=== PATIENT | female | born 1995 | race Caucasian/White ===

== ENCOUNTER → 2023-03-06 | Outpatient (CLI) | payer OTHER | END | disposition home or self-care (01) | LOC: NST 10:25 | PROVIDERS: ATTEND Obstetrics & Gynecology Maternal & Fetal Medicine | DX: Z34.83 Encounter for supervision of other normal pregnancy, third trimester (principal) ==

== ENCOUNTER 2023-03-07 10:45 | Inpatient (IN) | payer OTHER ==
[~2023-03-07] VITALS: Ht 157.5 cm; Wt 66.7 kg
[2023-03-07] MEDS ORDERED: PRENATAL + DHA1 EACH PO (12:21)
[2023-03-07] MEDS ORDERED: PEPCID AC20 MG PO (12:21)
== END 2023-03-09 12:27 | disposition home or self-care (01) | DRG 807 ==
LOC: NST 10:45 → LDR 11:41 → OB/GYN 18:55
PROVIDERS: ADMIT Obstetrics & Gynecology; ATTEND Obstetrics & Gynecology
PROC: 0KQM0ZZ Repair Perineum Muscle, Open Approach (ICD-10-PCS; 2023-03-07)
PROC: 0UQG7ZZ Repair Vagina, Via Natural or Artificial Opening (ICD-10-PCS; 2023-03-07)
PROC: 10D17Z9 Manual Extraction of Products of Conception, Retained, Via Natural or Artificial Opening (ICD-10-PCS; 2023-03-07)
PROC: 4A1HXCZ Monitoring of Products of Conception, Cardiac Rate, External Approach (ICD-10-PCS; 2023-03-07)
PROC: 10E0XZZ Delivery of Products of Conception, External Approach (ICD-10-PCS; principal; 2023-03-07 17:00)
DX: O70.1 Second degree perineal laceration during delivery (principal); Z37.0 Single live birth; O73.0 Retained placenta without hemorrhage; Z3A.36 36 weeks gestation of pregnancy; Z20.822 Contact with and (suspected) exposure to COVID-19

== ENCOUNTER 2024-04-16 13:32 | Outpatient (CLI) | payer OTHER ==
[~2024-04-16 13:32] MED LIST: PEPCID AC20 MG PO; PRENATAL + DHA1 EACH PO; PRENATAL TABLE1 EAC1 PO
== END 2024-04-16 14:13 | disposition home or self-care (01) ==
LOC: NST 13:32
PROVIDERS: ATTEND Specialist
DX: Z34.83 Encounter for supervision of other normal pregnancy, third trimester (principal)

== ENCOUNTER 2024-04-19 07:30 | Outpatient (CLI) | payer OTHER | END 2024-04-19 07:55 | disposition home or self-care (01) | LOC: NST 07:30 | PROVIDERS: ATTEND Specialist | DX: O09.93 Supervision of high risk pregnancy, unspecified, third trimester (principal) ==

== ENCOUNTER 2024-04-19 07:46 | Outpatient (CLI) | payer OTHER | END 2024-04-19 07:55 | disposition home or self-care (01) | LOC: NST 07:46 | PROVIDERS: ATTEND Obstetrics & Gynecology Gynecology | DX: Z34.83 Encounter for supervision of other normal pregnancy, third trimester (principal) ==